=== PATIENT | female | born 1930 | race Caucasian/White ===

== ENCOUNTER 2016-12-16 12:21 | Emergency (ER) | payer OTHER ==
[2016-12-16 12:53] VITALS: BP 117/70; PULSE 72; RESP 18; TEMP 97.3; O2SAT 93
--- NOTE | 2016-12-16 14:16 | EDPHY ---
H & P Time Seen by Provider: 12/16/16 13:34 HPI/ROS: CHIEF COMPLAINT: Right knee pain HISTORY OF PRESENT ILLNESS: Patient is an 86-year-old female who presents emergency department with right knee pain. She tripped over a parking cement block in the parking lot. She fell forward landing on her right knee. She felt severe pain. She tried to get up and her right knee "collapsed." She has been unable to ambulate since that time. Her pain is mild to moderate rest and severe with movement. She denies any radiation of pain. No numbness or tingling. She did not strike her head or lose conscious. She has no other complaints. The patient has had previous ACL repair 40 years ago on her right knee. REVIEW OF SYSTEMS: My complete review of systems is negative except as mentioned in the HPI. Past Medical/Surgical History: Includes hypothyroidism, mass cell activation, wrist fracture Past surgical history: Right knee surgery Social history: The patient does not smoke Smoking Status: Never smoked Physical Exam: Vitals noted GENERAL: Well-appearing, in no acute distress, alert. HEAD: No evidence of trauma. EYES: PERRLA, EOMI, normal to inspection. ENT: Airway intact, no dental or oral injury, no malocclusion, no hemotympanum , normal external examination. NECK: The trachea is midline. There is no crepitus. The C-spine is nontender. NEXUS criteria is negative (no midline tenderness, no distracting injury, no altered mental status, no recent alcohol use, no focal neurologic deficit). RESPIRATORY: Clear to auscultation bilaterally, no rales, rhonchi or wheezing. There is no crepitus or palpable rib fractures. CVS: Regular rate and rhythm, no rubs, murmurs, or gallops. ABDOMEN: Soft, nontender, nondistended, normal bowel sounds, no bruising or abrasions. Pelvis: Stable. No tenderness palpation. Hips full range of motion. BACK: Normal to inspection, no spinal tenderness, no spinal step off, no notable bruising or abrasions. SKIN: Normal color, warm, dry. No pallor or diaphoresis. EXTREMITIES: Right upper extremity: Atraumatic. No visible signs of trauma. No tenderness palpation. Neurovascular intact distally. Left upper extremity: Atraumatic. No visible signs of trauma. No tenderness palpation. Neurovascular intact distally. Right lower extremity: The patient has moderate swelling over her right knee. There is moderate tenderness to palpation over the patella. There is a slight step-off superiorly to the patella. There is mild swelling of the quadriceps muscle. No palpable femur tenderness. No palpable tib-fib, ankle or foot tenderness. Left lower extremity: Atraumatic. No visible signs of trauma. No tenderness palpation. Neurovascular intact distally. Atraumatic, neurovascularly intact distally in all extremities, pelvis is stable , hips with full range of motion, moves all extremities freely. NEURO/PSYCH: Alert and oriented x 3, GCS 15, normal mood and affect, normal motor sensory exam. Constitutional: Initial Vital Signs Temperature (C) 36.3 C 12/16/16 12:49 Heart Rate 72 12/16/16 12:49 Respiratory Rate 18 12/16/16 12:49 Blood Pressure 117/70 12/16/16 12:49 O2 Sat (%) 93 12/16/16 12:49 O2 Delivery Mode Room Air Allergies/Adverse Reactions: No Known Allergies Allergy (Unverified 12/16/16 12:48) Home Medications: Medication Instructions Recorded Benadryl 12/16/16 Hydrocodone/APAP 5/325 [[place] 1 - 2 tab PO Q4 #13 tab 12/16/16 5/325 (RX)] Ondansetron Odt [Zofran Odt 4 mg 4 mg PO Q4PRN PRN #7 tab 12/16/16 (*)] Sodium Chloride 12/16/16 Synthroid 12/16/16 Medical Decision Making - Diagnostics Imaging Results: Imaging Impressions Knee X-Ray 12/16/16 12:55 Impression: Tripartite distracted patellar fracture. ED Course/Re-evaluation: In the emergency department I discussed possible etiologies with the patient. I answered all her questions. An x-ray of her right knee was performed. Ice was placed on the right knee. Right knee x-ray: The patient has a tripartate distracted patellar fracture. Dr. Doll was paged 14 15: I discussed the case with Dr. Doll. He recommended a padded knee immobilizer and follow-up. I discussed the result with the patient. Patient tolerated the knee immobilizer was able to ambulate with a walker. She was written for prescription for walker. Patient has a friend pick her up. She will be discharged with a walker from the emergency department and return at once she has obtained a walker with her prescription. They will able to She is given warnings prior to leaving. She will return with worsening symptoms. I answered all her questions. Differential Diagnosis: My differential includes but is not limited to patellar dislocation, knee dislocation, patellar fracture, tibial fracture, femur fracture, quadriceps tendon rupture patellar tendon rupture Departure - Departure Disposition: Home, Routine, Self-Care Clinical Impression: Patellar fracture Qualifiers: Encounter type: initial encounter Fracture type: closed Fracture morphology: unspecified fracture morphology Fracture alignment: displaced Laterality: right Qualified Code(s): S82.001A - Unspecified fracture of right patella, initial encounter for closed fracture Condition: Good Instructions: Patellar Fracture (ED) Additional Instructions: You have a fractured patella (kneecap). This will need to be repaired. You will not be unable to bear weight on your right leg. Keep your knee immobilizer in place and use her crutches. You need close follow-up with Dr. Doll from orthopedic surgery. Referrals: [facility] [Other] - As per Instructions Heriberto Doll MD [Medical Doctor] - 2-3 days without fail Prescriptions: Hydrocodone/APAP 5/325 [[place] 5/325 (RX)] 1 - 2 tab PO Q4 #13 tab Ondansetron Odt [Zofran Odt 4 mg (*)] 4 mg PO Q4PRN PRN #7 tab PRN Reason: For Nausea & Vomiting
== END 2016-12-16 16:17 | disposition home or self-care (01) ==
DX: S82.001A Unspecified fracture of right patella, initial encounter for closed fracture (principal); W01.0XXA Fall on same level from slipping, tripping and stumbling without subsequent striking against object, initial encounter; Y92.481 Parking lot as the place of occurrence of the external cause
CPT/HCPCS: 73564; 99284; L1830

== ENCOUNTER 2016-12-22 11:58 | Day surgery (SDC) | payer OTHER ==
[~2016-12-22 11:58] MED LIST: BUPIVACAINE/EPI 0.25% 30 ML SDV ONE
[2016-12-22] MEDS ORDERED: PROPOFOL 200 MG/20 ML VIAL ONE ×2 (12:41→12:57)
[2016-12-22] MEDS ORDERED: ONDANSETRON 4 MG/2 ML VIAL ONE (12:43)
[2016-12-22] MEDS ORDERED: LIDOCAINE 2% 5 ML SDV ONE (12:43)
[2016-12-22] MEDS ORDERED: ROPIVACAINE HCL 150 MG/30 ML INJ ONE (12:43)
[2016-12-22] MEDS ORDERED: fentaNYL 100 MCG/2 ML INJ ONE (12:46)
[2016-12-22] MEDS ORDERED: CEFAZOLIN 2 GM/DEXTROSE/100 ML BAG IV ONE (12:46)
[2016-12-22] MEDS ORDERED: ceFAZolin 2 GM/DEXTROSE 100 ML IV ONE (13:00)
--- NOTE | 2016-12-22 15:00 | GOP ---
[f rep st] OPERATIVE REPORT DATE OF OPERATION: 12/22/2016 SURGEON: Lefty Corcoran MD [employer] REPRESENTATIVE: Jeffrey Li, CSFA, LSA. ANESTHESIA: General with femoral block. PREOPERATIVE DIAGNOSIS: Right patella fracture. POSTOPERATIVE DIAGNOSIS: Right patella fracture. PROCEDURE PERFORMED: Open reduction, internal fixation right patella. FINDINGS: SPECIMENS: None. ESTIMATED BLOOD LOSS: 5 mL. INDICATIONS: This is an 86 old female who fell and widely fractured her patella. I saw her and cou nseled her on the risks and benefits of operative intervention including need for cerclage wire, nee d for patellectomy, nonunion, malunion, re-fracture, continued pain and stiffness, and she wished to proceed. Informed consent was obtained. All questions were asked and answered. DESCRIPTION OF PROCEDURE: The patient was taken to the operating room. A block had been performed per Anesthesia. She was given 1 g of Ancef. She was sterilely prepped and draped in normal fashion . A time-out was performed verifying the site, side, location and procedure. A midline incision approach to the knee and dissected down to the patella to tighten the retinacular structures. Fracture was widely displaced. I debrided this and then thoroughly irrigated her knee . I was able to define the fracture ends. She had a transverse type fracture. I placed 2 guidewir es for Acutrak screws from distal to the distal fragment and visualized these. Antonio these back. Th en reduced the fracture and held this with clamps. I was able to feel through the retinaculum the a rticular surface and this felt anatomic. I placed the guidewires across this, as well as a 3rd guid ewire. I checked this fluoroscopically. I placed the Acutrak screws across these sequentially with clamps in place. I checked final x-rays, ensuring good implant placement and fracture reduction. She was taken through a range of motion to 90 degrees and there is no fracture gapping, and took an x-ray. She was irrigated, closed with 1-0 Vicryl, 0 Vicryl, 2-0 Vicryl, 3-0 Quill, and Dermabond. She was taken to the PACU in stable condition. IMPLANTS: Two Acutrak 4.7 screws (one 35 mm and one 40 mm) and an Acutrak Standard 34 mm screw. COMPLICATIONS: None. DRAINS: None. DISPOSITION: Stable. /[id number]/MODL
== END 2016-12-22 16:15 | disposition home or self-care (01) ==
LOC: FSGY 11:58
PROVIDERS: ATTEND Orthopaedic Surgery
PROC: 0QSD04Z Reposition Right Patella with Internal Fixation Device, Open Approach (ICD-10-PCS; principal; 2016-12-22 13:00)
DX: S82.091A Other fracture of right patella, initial encounter for closed fracture (principal); W01.0XXA Fall on same level from slipping, tripping and stumbling without subsequent striking against object, initial encounter; Y92.89 Other specified places as the place of occurrence of the external cause; C96.2 Malignant mast cell neoplasm
CPT/HCPCS: 27524; 76001; C1769; C1713; J0690; J2405; J2704; J2795; J3010